=== PATIENT | male | born 1970 | race Asian ===

== ENCOUNTER 2021-11-05 21:59 | Emergency (ER) | payer MEDICAID, SELFPAY ==
[2021-11-05] VITALS (12 sets, daily range): BP systolic 126–161; BP diastolic 86–105; PULSE 72–81; RESP 17–20; TEMP 36.6; O2SAT 91–99
--- NOTE | ~2021-11-05 | CT_ITS ---
EXAMINATION: CT abdomen pelvis wo con DATE: 11/05/2021 23:25 INDICATION: Right flank pain. Low abdominal pain TECHNIQUE: Computed tomography (CT) of the abdomen and pelvis was performed without intravenous contr ast. Automated exposure control and iterative reconstruction technique were employed. Exam dose: 411 .77 mGy-cm total exam DLP. COMPARISON: None. FINDINGS: Lung bases are clear. Normal heart size. No pericardial or pleural effusion. The liver, spleen, pancreas, adrenal glands are unremarkable. The gallbladder is present. No bile glen t or pancreatic duct dilatation. 2 cm probable left renal cyst There is a pinpoint nonobstructing lower pole right renal calculus. There is mild right hydroureteron ephrosis and mild pyelosinus extravasation secondary to a proximal right ureteral 5 mm calculus. The urinary bladder and prostate gland are unremarkable. Normal caliber of the abdominal aorta. No intraperitoneal or retroperitoneal or pelvic mass lesion or adenopathy or ascites. Normal appendix. No bowel obstruction, bowel wall thickening, pneumatosis or intraperitoneal free air . No suspicious osteolytic or osteoblastic lesions are noted. Probable hemangioma of a mid to lower tho racic vertebral body. IMPRESSION: 5 mm obstructing proximal right ureteral calculus with mild right hydroureteronephrosis, pyelosinus extravasation Reviewed, dictated and finalized at [facility]. Reviewed, dictated and finalized at [facility].
--- NOTE | ~2021-11-05 | XR_ITS ---
XR abdomen/kub 1V 11/06/2021 00:57 Indication: Right proximal ureteral stone Procedure: KUB Comparison: CT dated 11/05/2021 Findings: There is a faint calcification at the inferior aspect of L4 on the right, suspicious for st one identified on prior CT examination. Nonobstructive bowel gas pattern. Moderate colonic fecal load ing. There is left pelvic phlebolith. Impression: 1: Faint calcification in the right mid abdomen adjacent to L4 may correspond to the proximal uretera l stones seen on CT examination. Reviewed, dictated and finalized at [facility]. Impression: 1: Faint calcification in the right mid abdomen adjacent to L4 may correspond t o the proximal ureteral stones seen on CT examination.
[2021-11-05 22:53] LABS: Basophils Absolute Auto 0.1 K/mm3 (0.0-0.1); Basophils Percent Auto 0.7 % (0.2-1.2); Eosinophils Absolute Auto 0.1 K/mm3 (0-0.3); Eosinophils Percent Auto 0.9 % (0-4.4); Hematocrit 41.9 % (42.0-52.0); Hemoglobin 14.6 g/dL (14.0-18.0); Immature Granulocyte Absolute 0.02 K/mm3 (0.00-0.031); Immature Granulocyte Percent A 0.3 % (0-0.5); Lymphocytes Absolute Auto 1.47 K/mm3 (0.9-3.2); Lymphocytes Percent Auto 21.9 % (18.3-44.2); Mean Corpuscular HGB Conc 34.8 g/dl (32-36); Mean Corpuscular Hemoglobin 29.8 pg (26-34); Mean Corpuscular Volume 85.5 fl (80-100); Mean Platelet Volume 9.6 fl (7.4-10.4); Monocytes Absolute Auto 0.5 K/mm3 (0.1-0.6); Neutrophils Absolute Auto 4.6 K/mm3 (1.3-6.7); Neutrophils Percent Auto 68.2 % (45.5-73.1); Platelet Count Result 149 k/mm3 (150-375); Red Cell Distribution Width 12.3 % (11.5-14.5); White Blood Count 6.7 K/mm3 (4.5-10.0)
[2021-11-05] MEDS: ACETAMINOPHEN 500 MG TABLET 1000 MG PO (22:57)
[2021-11-05] MEDS: SODIUM CHLORIDE 0.9% IV 1,000 ML 999 ML IV CONT (22:57)
[2021-11-05 23:04] LABS: Alanine Aminotransferase 10 U/L (6-50); Albumin Level 4.4 g/dL (3.5-5.1); Alkaline Phosphatase 73 U/L (38-126); Anion Gap 8 mmol/L (8-16); Aspartate Amino Transferase 21 U/L (17-59); Bilirubin,Total 0.4 mg/dL (0.2-1.3); Blood Urea Nitrogen 26 mg/dL (9-20); Calcium 8.7 mg/dL (8.4-10.2); Carbon Dioxide 25 mmol/L (22-30); Chloride 108 mmol/L (98-107); Estimated Glomerular Filt Rate > 60; Glucose 127 mg/dL (65-110); Lipase 178 U/L (23-300); Potassium 3.7 mmol/L (3.4-5.0); Sodium 141 mmol/L (137-145)
--- NOTE | 2021-11-05 23:16 | PC.NURSE ---
Patient taken to CT via stretcher.
--- NOTE | 2021-11-05 23:28 | ED.ABDPAIN ---
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 Reports has had pain since yesterday its intermittent is primarily in his lower abdomen achy, no clear aggravating or alleviating factors, radiates to his back. Reports his urine was very dark yesterday almost black but was yellow today denies any pain urination denies any fevers, nausea, vomiting, diarrhea denies any chest pain or shortness of breath. Denies any prior history of similar symptoms since pain was more severe today's The ER for further evaluation. Reports currently he does not have any pain. Related Data Allergies Allergy/AdvReac Type Severity Reaction Status Date / Time No Known Allergies Allergy Verified 11/05/21 22:14 Review of Systems Review of Systems: CONSTITUTIONAL: Denies fever, chills, or sweats. EYES: Denies visual changes, redness, or discharge. ENT: Denies rhinorrhea, congestion, sore throat, or otalgia. CARDIOVASCULAR: Denies chest pain, palpitations, or edema. RESPIRATORY: Denies cough or dyspnea. GASTROINTESTINAL: Denies nausea, vomiting, or diarrhea. GENITOURINARY: Reports yesterday his urine was dark but is normal today SKIN: Denies rash or itching. MUSCULOSKELETAL: Denies back pain, joint pain, or myalgia. NEUROLOGIC: Denies headache, numbness, dizziness, or weakness. PSYCHIATRIC: Denies anxiety or depression. All systems reviewed & are unremarkable except as noted in HPI and below PMFSH Past Medical History Medical History (Updated 11/06/21 @ 01:52 by Noah Delcid MD) Ureteral stone Exam Narrative: GENERAL: Well-appearing, well-nourished, and in no acute distress. HEAD: Normocephalic, atraumatic. EYES: PERRLA and EOMI. ENT: Nares clear, no rhinorrhea or epistaxis. Mucous membranes moist. NECK: Supple. No masses. No JVD ABDOMEN: Minimal pain with deep palpation of the lower abdomen soft,nondistended, normal active bowel sounds. EXTREMITIES: Normal range of motion. No edema. SKIN: Warm, dry, no rash. NEURO: No focal deficits. Alert and oriented x3. PSYCH: Normal mood and affect. Course Reevaluation(s) Reevaluation #1: Patient reports feeling much improved results and plan reviewed with patient. Patient is comfortable outpatient plan. Vital Signs Vital signs: Vital Signs Temperature 36.6 C 11/05/21 22:11 Pulse Rate 79 11/05/21 22:11 Respiratory Rate 20 11/05/21 22:11 Blood Pressure 161/105 H 11/05/21 22:11 Pulse Oximetry 98 11/05/21 22:11 Oxygen Delivery Room Air 11/05/21 22:11 Temperature 36.6 C 11/05/21 22:11 Pulse Rate 64 11/06/21 01:59 Respiratory Rate 18 11/06/21 01:59 Blood Pressure 137/87 11/06/21 01:59 Pulse Oximetry 98 11/06/21 01:59 Oxygen Delivery Room Air 11/05/21 22:11 MDM - Abdominal Pain MDM Narrative Medical decision making narrative: H&P as above, vss, pt looks clinically well, exam nonacute abdomen, labs with hematuria, img proximal right ureteral stone, additional labs/img considered, symptomatic relief available as needed, on reevaluation pt continues to looks clinically well. Suspect ureteral stone, dns infected stone, perforation, ANTONETTE, severe sepsis plan to tx/monitor as op w/ pcm f/u findings/plan discussed with pt, pt agree/comfortable with plan, return precautions given Lab Data Result diagrams: 11/05/21 22:48 11/05/21 22:48 Labs: Lab Results 11/05/21 11/05/21 11/05/21 Range/Units 22:48 22:48 23:35 WBC 6.7 (4.5-10.0) K/mm3 RBC 4.90 (4.6-6.20) M/mm3 Hgb 14.6 (14.0-18.0) g/dL Hct 41.9 L (42.0-52.0) % MCV 85.5 (80-100) fl MCH 29.8 (26-34) pg MCHC 34.8 (32-36) g/dl RDW 12.3 (11.5-14.5) % Plt Count 149 L (150-375) k/mm3 MPV 9.6 (7.4-10.4) fl Immature Gran % (Auto) 0.3 (
[2021-11-05 23:46] LABS: Appearance Urine Slightly Cloudy (Clear); Bilirubin Urine Negative (Negative); Blood Urine 3+ (Negative); Color Urine Yellow (Yellow); Glucose Urine UA Negative (Negative); Ketones Urine Negative (Negative); Leukocyte Esterase Ur Negative LEU/UL (Negative); Nitrate Urine Negative (Negative); Protein Urine 1+ mg/dL (Negative); Specific Grav Ur 1.025 (1.001-1.035); Urobilinogen Urine 0.2 mg/dL (<2.0)
[2021-11-05 23:52] LABS: Bacteria Urine Trace /hpf; Mucus Urine Rare /lpf; RBC Urine >75 /hpf (0-2); WBC Urine 0-3 /hpf
[2021-11-05 23:56] LABS: Add Urine Microscopic? YES
[2021-11-06 00:07] VITALS: O2SAT 98
[2021-11-06 01:07] VITALS: BP 139/85; PULSE 70; RESP 17; O2SAT 98
[2021-11-06 01:59] VITALS: BP 137/87; PULSE 64; RESP 18; O2SAT 98
== END 2021-11-06 02:01 | disposition home or self-care (01) ==
PROVIDERS: Emergency Provider Emergency Medicine
DX: N20.1 Calculus of ureter (principal)
CPT/HCPCS: 36415; 74018; 74176; 80053; 81001; 83690; 85025; 96360; 99284; A9270; J7030